=== PATIENT | male | born 1975 | race Caucasian/White ===

== ENCOUNTER 2023-09-26 11:01 | Emergency (ER) | payer BC, SELFPAY ==
[2023-09-26 11:07] VITALS: BP 150/94
[2023-09-26 11:18] LABS: % Basophils 0.4 % (0-2); % Eosinophils 5.5 % (0-6); % Immature Granulocytes 0.4 % (0-0.5); % Lymphocytes 22.3 % (20.5-51.1); % Neutrophils 60.4 % (42.2-75.2); Absolute Eosinophils 0.3 10^3/uL (0-0.7); Absolute Lymphocytes 1.2 10^3/uL (1.2-3.4); Absolute Monocytes 0.6 10^3/uL (0.1-0.6); Absolute Neutrophils 3.3 10^3/uL (1.4-6.5); Hematocrit 39.2 % (39.0-52.0); Hemoglobin 14.3 g/dL (13.0-18.0); Mean Corp Hgb Conc. 36.5 g/dL (33.0-37.0); Mean Corpuscular Hgb 31.6 pg (27.0-31.0); Mean Corpuscular Volume 86.7 fL (80.0-94.0); Mean Platelet Volume 9.7 fL (7.4-10.4); Nucleated Red Blood Cells % 0 % (-); Platelet Count 182 10^3/uL (130-400); Red Blood Cell Count 4.52 10^6/uL (4.70-6.10); Red Cell Dist. Width 11.9 % (11.5-14.5); White Blood Cell Count 5.5 10^3/uL (4.8-10.8)
[2023-09-26 11:33] LABS: ALT (SGPT) 69 U/L (0-50); AST (SGOT) 54 U/L (17-59); Albumin 4.5 g/dl (3.5-5.0); Alkaline Phosphatase 63 U/L (38-126); Blood Urea Nitrogen 16 mg/dl (9-20); Carbon Dioxide 27 mmol/L (22-30); Chloride 99 mmol/L (98-107); Glucose 115 mg/dl (70-99); Lipase 134 U/L (23-300); Potassium 4.2 mmol/L (3.5-5.1); Sodium 135 mmol/L (135-145); Total Bilirubin 1.5 mg/dl (0.2-1.3); Total Protein 7.9 g/dl (6.3-8.2); eGFR > 60.00
[2023-09-26 11:51] VITALS: BMI 39.3
--- NOTE | 2023-09-26 12:18 | ED.GENMED ---
History of Present Illness
General
Chief Complaint: Abdominal Pain
Source: patient
Exam Limitations: none
Time Seen by Provider: 09/26/23 12:01
Nursing documentation reviewed up to this point in time: agreed with
Travel History
Have you had any contact with someone who has COVID-19?: No
Do you have any symptoms of coronavirus? Fever > 100 degrees, chills, cough, shortness of breath, sore throat, loss of taste or smell, muscle aches, or headache?: No
History of Present Illness
History of Present Illness:
48-year-old male past medical history of NAFLD presenting to the emergency department today with concerns of lower abdominal pain over the past 2 days with associated nausea and subjective fever yesterday denies any vomiting changes in bowel
movements significant changes in urination. Denies similar symptoms in the past. No history of surgeries to the abdomen
Review of Systems
Review of Systems
Allergies reviewed?: Yes
All Other Systems: ROS reviewed and negative except as documented in HPI and ROS
Phy Exam
Physical Exam
Physical Exam:
GENERAL: Alert , in no apparent distress
EYE: pupils equal and reactive
NECK: Supple, no significant adenopathy.
ENT: o/p clr, mmm.
CARDIAC: Regular rate and rhythm .
LUNGS: Clear breath sounds bilaterally, no acute respiratory distress, no wheezes/rales/rhonchi
ABDOMEN: Mild tenderness throughout the lower abdomen maximal to the left lower quadrant and periumbilical region minimal to the right lower quadrant soft benign abdomen to the upper abdomen
NEUROLOGICAL: Alert and oriented, no focal neuro deficits
SKIN: Warm and dry, skin intact.
MUSCULOSKELETAL: No edema, well perfused.
PSYCH: Normal and appropriate interaction.
Course
Orders/Labs/Results
Orders:
Orders
09/26/23 11:13
Complete Blood Count/With Diff Urgent
Comprehensive Metabolic Panel Urgent
Lipase Urgent
09/26/23 12:18
CT Abd/Pel (IV only)-DH only Urgent
Comment:
Reason For Exam: lower abd pain
09/26/23 12:49
Urinalysis Reflex To Culture Urgent
Date Specimen was Collected: 09/26/23
Time Specimen was Collected: 12:48
09/26/23 14:44
Amoxicillin 875 mg/Clav 125 mg [Augmentin 875 mg/125 mg] 1 tablet PO NOW STA
Abnormal Lab Results
09/26/23
11:13
RBC 4.52 L 10^6/uL
(4.70-6.10)
MCH 31.6 H pg
(27.0-31.0)
Monocytes % 11.0 H %
(1.7-9.3)
Glucose 115 H mg/dl
(70-99)
Total Bilirubin 1.5 H mg/dl
(0.2-1.3)
ALT 69 H U/L
(0-50)
09/26/23 11:13
09/26/23 11:13
Vital Signs
Initial and Last Documented VS:
Initial Vital Signs
Temp Pulse Resp BP Pulse Ox
98.2 F 89 18 150/94 98
09/26/23 11:07 09/26/23 11:07 09/26/23 11:07 09/26/23 11:07 09/26/23 11:07
Last Documented Vital Signs
Temp Pulse Resp BP Pulse Ox
98.2 F 89 18 150/94 98
09/26/23 11:07 09/26/23 11:07 09/26/23 11:07 09/26/23 11:07 09/26/23 11:07
MDM/Problems Addressed
MDM/Problems Addressed:
48-year-old male presenting to the emergency department today with concerns of lower abdominal pain over the past 2 days associated nausea low-grade fever upon arrival here vital signs are normal patient no distress. Labs unremarkable no white
count patient does have reproducible tenderness to the lower abdomen. Plan for CT scan for further assessment. CT scan showing sigmoid diverticulitis. Patient was given Augmentin but otherwise well-appearing for outpatient treatment. Return
precautions given.
*Critical Care Note
Total Time (30-74mins, 75-104mins- exclusive of procedures): Not Applicable
ED Attending Note
-
Portions of this chart may have been created with voice recognition software.� Occasional wrong word or��sound alike� substitutions may have occurred due to the inherent limitations of voice recognition software.
Discharge Plan
Departure
Patient Disposition: Home (Routine Discharge)
Date of Disposition: 09/26/23
Time of Disposition: 14:58
Patient with high blood pressure during this ER visit?: No
Condition: Good
Covid-19: Not Applicable
Discharge Problem:
Diverticulitis
Instructions: Diverticulitis (DC)
Prescriptions:
New
amoxicillin-pot clavulanate 875-125 mg tablet
1 tab PO BID 7 Days Qty: 14 0RF
Referrals:
Pavel Hill MD [Family Provider] -
Activity Restrictions/Additional Instructions:
You came to the emergency department today with concerns of lower abdominal pain. You are found to have diverticulitis. Please take Augmentin twice daily for the next 7 days and slowly progress your diet. Additionally your images were sent to
[facility] via transfer so that your outpatient doctor can access it. Return to the emergency department for any worsening, new or concerning symptoms.
Interventions
Interventions:
*Risk Screen - Suicide Last Done: 09/26/23 11:51
*General Assessment Last Done: 09/26/23 11:51
*Neglect/Abuse Screening Last Done: 09/26/23 11:51
ED- Fall Risk Assessment Last Done: 09/26/23 11:51
*ED COVID-19 Vaccine History Last Done: 09/26/23 11:07
AN-Fefqac-Oohruariah Assessment Last Done: 09/26/23 11:51
Discharge Date and Time
Print Language: PASHTO
[2023-09-26 13:03] LABS: Urine Albumin Negative (Neg - Trace); Urine Bilirubin Negative (Negative); Urine Character Clear (Clear); Urine Color Yellow; Urine Glucose Negative (Negative); Urine Ketone Negative (Negative); Urine Leukocyte Negative (Negative); Urine Nitrite Negative (Negative); Urine Occult Blood Negative (Negative); Urine Specific Gravity 1.005 (<1.030); Urine Urobilinogen Negative (Neg - 1+)
[2023-09-26] MEDS: AUGMENTIN 875 MG/125 MG 1 TABLET PO (14:53)
[2023-09-26 14:59] VITALS: BP 125/76
[2023-09-26 15:09] VITALS: BP 125/76
== END 2023-09-26 15:09 | disposition home or self-care (01) ==
LOC: EMR 11:01
PROVIDERS: Physician Assistant; EMERGENCY PHYSICIAN Emergency Medicine; FAMILY PHYSICIAN Family Medicine
DX: K57.32 Diverticulitis of large intestine without perforation or abscess without bleeding (principal); K76.0 Fatty (change of) liver, not elsewhere classified
CPT/HCPCS: 99284; 74177; 80053; 81003; 83690; 85025; Q9967

== ENCOUNTER 2024-08-26 19:56 | Emergency (ER) | payer BC, SELFPAY ==
[2024-08-26 19:58] VITALS: BP 154/92
--- NOTE | 2024-08-26 23:45 | ED.GENMED ---
History of Present Illness
General
Chief Complaint: Eye Problems
Time Seen by Provider: 08/26/24 23:32
History of Present Illness
History of Present Illness:
48-year-old male presents to the emergency department for evaluation of right eye discomfort that began late last week and worsened today. [place] as though there is a foreign body sensation in the eye over the course of the weekend. Denies any known
injuries or foreign bodies. No blurry or double vision. Does wear glasses but no contacts. No eye discharge
Review of Systems
Review of Systems
Allergies reviewed?: Yes
All Other Systems: ROS reviewed and negative except as documented in HPI and ROS
Phy Exam
Physical Exam
Physical Exam:
GEN: Well appearing, NAD, WDWN
HEENT: Mild conjunctival injection locally to the lateral/temporal right conjunctiva, there is a visible clear cystic structure emanating from the lateral conjunctiva on the right associated with the injection, no hyphema or hypopyon; oral mucosa
moist, no scleral icterus
Cardiac: Regular rate
Lung: No respiratory distress, no tachypnea
MSK: No gross deformity or injuries
Skin: Good color, no pallor or jaundice, no rashes
Neuro: AO x3, moves all extremities freely
Psych: Calm, cooperative
Course
Vital Signs
Initial and Last Documented VS:
Initial Vital Signs
Temp Pulse Resp BP Pulse Ox
98.2 F 68 20 154/92 97
08/26/24 19:58 08/26/24 19:58 08/26/24 19:58 08/26/24 19:58 08/26/24 19:58
Last Documented Vital Signs
Temp Pulse Resp BP Pulse Ox
98.2 F 68 20 154/92 97
08/26/24 19:58 08/26/24 19:58 08/26/24 19:58 08/26/24 19:58 08/26/24 19:58
MDM/Problems Addressed
MDM/Problems Addressed:
This is likely a benign conjunctival cyst, will treat with topical antibiotics in the event that this was triggered by foreign body, recommend outpatient ophthalmology follow-up
*Critical Care Note
Total Time (30-74mins, 75-104mins- exclusive of procedures): Not Applicable
ED Attending Note
-
Portions of this chart may have been created with voice recognition software.� Occasional wrong word or��sound alike� substitutions may have occurred due to the inherent limitations of voice recognition software.
Discharge Plan
Departure
Patient Disposition: Home (Routine Discharge)
Date of Disposition: 08/26/24
Time of Disposition: 23:45
Patient with high blood pressure during this ER visit?: No
Discharge Problem:
Conjunctival cyst
Prescriptions:
New
erythromycin 5 mg/gram (0.5 %) ointment
0.5 inch ophthalmic (eye) QID 5 Days Qty: 3.5 0RF
No Action
amoxicillin-pot clavulanate 875-125 mg tablet
1 tab PO BID 7 Days Qty: 14 0RF
Referrals:
Avel Mendez MD [Active] - As needed
Pavel Hill MD [Family Provider] -
Activity Restrictions/Additional Instructions:
This is most likely a benign conjunctival cyst, if it does not improve in 7 to 10 days on its own please follow-up with ophthalmology as listed on your paperwork
Avoid excessive irritation to the eye including rubbing or chemical exposure as this may worsen the symptoms
Interventions
Interventions:
*Risk Screen - Suicide Last Done: 08/26/24 20:01
*General Assessment Last Done: 08/26/24 19:58
*Neglect/Abuse Screening Last Done: 08/26/24 20:01
*ED COVID-19 Vaccine History Last Done: 08/26/24 20:01
*Nursing Disposition Last Done: 08/26/24 23:55
Discharge Date and Time
Discharge Date/Time: 08/26/24 23:56
Print Language: ROMANIAN
== END 2024-08-26 23:56 | disposition home or self-care (01) ==
LOC: EMR 19:56
PROVIDERS: EMERGENCY PHYSICIAN Emergency Medicine; FAMILY PHYSICIAN Family Medicine
DX: H11.441 Conjunctival cysts, right eye (principal)
CPT/HCPCS: 99283

== ENCOUNTER 2024-10-07 00:53 | Emergency (ER) | payer BC, SELFPAY ==
[2024-10-07 00:55] VITALS: BP 169/94
--- NOTE | 2024-10-07 01:17 | ED.GENMED ---
History of Present Illness
General
Chief Complaint: Musculo-Skeletal Complaint
Source: patient
Exam Limitations: none
Time Seen by Provider: 10/07/24 01:08
Nursing documentation reviewed up to this point in time: agreed with
History of Present Illness
History of Present Illness:
49-year-old male with a past medical history of fatty liver disease, hemochromatosis, gout who presents to the emergency department for evaluation of left ankle pain. Patient reports onset of symptoms Monday and they have been constant since
that time. He reports pain and swelling around the left ankle with some redness. He says pain is worse with movement. No clear relieving factors noted. He denies any trauma or injury. He denies any fevers or chills. He denies any other joint
pains. He says he has had similar symptoms with gout flares in the past but pain is a bit worse than typical and so he came to the ER to be assessed.
Review of Systems
Review of Systems
All Other Systems: ROS reviewed and negative except as documented in HPI and ROS
Constitutional: Denies fever or chills
Musculoskeletal: Reports joint pain and joint swelling
Phy Exam
Physical Exam
Physical Exam:
General: Well appearing and non-toxic
HEENT: protecting airway
Neck: appears supple
CV: No evidence of cyanosis
Resp: No accessory muscle use
Abd: Non-distended
Extremities: Patient has swelling, warmth, redness of the left ankle as well as tenderness circumferentially around the ankle; there is some localized edema around the ankle; no calf edema and no calf tenderness, no palpable cords; he has strong
pulses throughout the left lower extremity; no wounds noted
Neuro: Alert
Psych: Normal affect
Skin: Intact
Scores
Heart Failure Risk
Heart Failure Risk Score: Not Applicable
Heart Score for Chest Pain Patients
STEMI patient?: Not applicable
Withdrawal Assessment of Alcohol
Withdrawal Assessment Completed?: Not applicable
Course
Orders/Labs/Results
Orders:
Orders
10/07/24 01:16
Colchicine 1.2 mg PO NOW STA
Ketorolac [Toradol] 30 mg IM NOW STA
CR Ankle - Left Min 3 Views Urgent
Comment:
Reason For Exam: left ankle pain
Vital Signs
Initial and Last Documented VS:
Initial Vital Signs
Temp Pulse Resp BP Pulse Ox
36.7 C 92 18 169/94 96
10/07/24 00:55 10/07/24 00:55 10/07/24 00:55 10/07/24 00:55 10/07/24 00:55
Last Documented Vital Signs
Temp Pulse Resp BP Pulse Ox
36.7 C 92 18 169/94 96
10/07/24 00:55 10/07/24 00:55 10/07/24 00:55 10/07/24 00:55 10/07/24 00:55
MDM/Problems Addressed
Differential Diagnosis Includes:
Gout, ankle fracture/sprain, septic arthritis
MDM/Problems Addressed:
49-year-old male presents for evaluation of atraumatic pain and swelling in the left ankle similar to prior gout flares but slightly more intense than usual. Hypertensive otherwise normal vitals�notably afebrile. Physical exam as above. Swelling
and pain is very localized to the ankle joint�there is no edema in the lower leg and I have low suspicion for vascular pathology such as DVT; he has good pulses throughout no signs of arterial insufficiency. While there is some erythema and warmth
of the joint he has no wounds, no fever to suggest that this is septic arthritis. He has a history of gout and I think this is the most likely diagnosis in this case. Will plan to start colchicine, treat with Toradol. Check x-ray of the ankle for
completeness. Reassess after the above.
X-ray shows no fracture. Patient's pain is controlled. Stable for discharge on anti-inflammatories. Spoke about return precautions all questions answered.
Chronic conditions affecting care:
Gout
Acute Exacerbation and/or Progression of Chronic Illness: HTN
*Radiology
Radiology exam reviewed: preliminary read by ED provider
*Pulse Oximetry
Patient hypoxic: no
*Critical Care Note
Total Time (30-74mins, 75-104mins- exclusive of procedures): Not Applicable
Data Reviewed
Review of Other/Old Records Reveals: Records
Source: patient
ED Attending Note
-
Portions of this chart may have been created with voice recognition software.� Occasional wrong word or��sound alike� substitutions may have occurred due to the inherent limitations of voice recognition software.
Discharge Plan
Departure
Patient Disposition: Home (Routine Discharge)
Date of Disposition: 10/07/24
Time of Disposition: 01:49
Patient with high blood pressure during this ER visit?: Yes
Discharge Problem:
Gout flare
Instructions: Gout - ED discharge instructions
Prescriptions:
New
colchicine 0.6 mg tablet
0.6 mg PO BID Qty: 30 0RF
Rx Instructions:
Take twice daily and continue until 24 hours after your gout flare symptoms resolve
ibuprofen 400 mg tablet
400 mg PO Q6H PRN (Reason: Pain) Qty: 60 0RF
No Action
amoxicillin-pot clavulanate 875-125 mg tablet
1 tab PO BID 7 Days Qty: 14 0RF
erythromycin 5 mg/gram (0.5 %) ointment
0.5 inch ophthalmic (eye) QID 5 Days Qty: 3.5 0RF
Activity Restrictions/Additional Instructions:
Thank you for visiting the Emergency Department at [facility].
1. Please schedule a follow up appointment as directed. Call first thing tomorrow morning to make an appointment.
2. If indicated, please take your medications as instructed and indicated on discharge paperwork.
3. If any of your symptoms do not improve, or persist, or become more severe within 6-12 hours, please return to the emergency department for further care.
4. Please return to the emergency department if you develop a headache, neck pain/stiffness, fever greater than 100.4F, chest pain, shortness of breath, persistent nausea, vomiting, slurred speech, difficulty walking, numbness/tingling, weakness,
signs of infection or any other symptoms that are worrisome to you.
Please call [phone] if you have any questions.
Interventions
Interventions:
*Risk Screen - Suicide Last Done: 10/07/24 00:55
*General Assessment Last Done: 10/07/24 00:55
*Neglect/Abuse Screening Last Done: 10/07/24 00:55
*ED- Fall Risk Assessment Last Done: 10/07/24 00:55
*ED COVID-19 Vaccine History Last Done: 10/07/24 00:55
ED-Musculoskeletal Assessment Last Done: 10/07/24 01:07
Discharge Date and Time
Print Language: KENYAN
[2024-10-07] MEDS: TORADOL 30 MG IM (01:21)
[2024-10-07] MEDS: COLCHICINE 1.2 MG PO (01:26)
[2024-10-07] MEDS: PERCOCET 5/325 1 TABLET PO (01:56)
[2024-10-07 02:10] VITALS: BP 152/80
== END 2024-10-07 02:14 | disposition home or self-care (01) ==
LOC: EMR 00:53
PROVIDERS: EMERGENCY PHYSICIAN Emergency Medicine; FAMILY PHYSICIAN Family Medicine
DX: M10.9 Gout, unspecified (principal); M25.572 Pain in left ankle and joints of left foot; M25.472 Effusion, left ankle; R26.2 Difficulty in walking, not elsewhere classified; R03.0 Elevated blood-pressure reading, without diagnosis of hypertension; K76.0 Fatty (change of) liver, not elsewhere classified; E83.119 Hemochromatosis, unspecified
CPT/HCPCS: 99284; 96372; 73610